=== PATIENT | male | born 1965 | race Two or more races ===

== ENCOUNTER 2017-08-28 08:19 | Outpatient (CLI) | payer OTHER | END 2017-08-28 08:30 | disposition home or self-care (01) | LOC: TOM 08:19 | DX: R97.0 Elevated carcinoembryonic antigen [CEA] (principal) ==

== ENCOUNTER → 2017-09-11 | Outpatient (CLI) | payer OTHER | END | disposition home or self-care (01) | LOC: MRI 07:11 | DX: K76.89 Other specified diseases of liver (principal); R16.0 Hepatomegaly, not elsewhere classified; R16.1 Splenomegaly, not elsewhere classified; R97.8 Other abnormal tumor markers | CPT/HCPCS: 74182 ==